=== PATIENT | female | born 1995 | race Caucasian/White ===

== ENCOUNTER 2020-08-30 21:08 | Emergency (ER) | payer BC ==
[~2020-08-30] VITALS: Ht 165.1 cm; Wt 58.2 kg
[2020-08-30 21:27] VITALS: Ht 165.1 cm; Wt 58.2 kg
[2020-08-30 21:53] LABS: BASOPHIL % 0.5 % (0-2); PLATELET COUNT 217 x10^3mcL (130-400); RED CELL DISTRIBUTION WIDTH 14.7 % (11.5-14.5)
[2020-08-30 22:06] LABS: ALBUMIN 4.2 g/dL (3.4-5.0); ALKALINE PHOSPHATASE 42 U/L (46-116); ALT/SGPT 16 U/L (14-59); AST/SGOT 11 U/L (15-37); BILIRUBIN TOTAL 0.28 mg/dL (0.20-1.00); CALCIUM 9.2 mg/dL (8.5-10.1); CARBON DIOXIDE 28.5 mmol/L (21-32); CHLORIDE SERUM 107 mmol/L (98-107); CREATININE SERUM 0.7 mg/dL (0.6-1.0); GFR1 > 60 mL/min; GLUCOSE SERUM 92 mg/dL (74-106); SODIUM SERUM 138 mmol/L (136-145); TOTAL PROTEIN, SERUM 7.5 g/dL (6.4-8.2)
[2020-08-30 22:48] LABS: microscopic required? NO
[2020-08-30 23:01] LABS: UA SPECIFIC GRAVITY 1.015 (1.005-1.035); urine erythrocyte NEGATIVE (NEGATIVE)
[2020-08-31 01:19] VITALS: BP 108/67
== END 2020-08-31 01:19 | disposition home or self-care (01) ==
LOC: ED 21:08
PROVIDERS: Emergency Medicine
DX: R10.2 Pelvic and perineal pain (principal); R10.813 Right lower quadrant abdominal tenderness; R10.814 Left lower quadrant abdominal tenderness
CPT/HCPCS: J1885; Q0092